=== PATIENT | male | born 1965 | race American Indian/Alaskan Native ===

== ENCOUNTER 2017-04-27 23:03 | Emergency (ER) | payer MEDICAID ==
[2017-04-28] MEDS ORDERED: NORCO 5/325 PO ONE (00:23)
--- NOTE | 2017-04-28 02:14 | XRay Report ---
FINAL REPORT PROCEDURE: XR FOOT 3+V LT TECHNIQUE: LEFT foot radiographs, AP, lateral, and oblique views. CPT 27585 HISTORY: left foot pain, FB sensation COMPARISON: No prior studies are available for comparison. FINDINGS: There are no fractures. There is hallux valgus configuration of the 1st metatarsophalangeal joint. Soft tissues are unremarkable. There are no foreign bodies. IMPRESSION: No foreign body is identified. There is no fracture..
--- NOTE | 2017-04-28 02:50 | Emergency Department Report ---
ED ENT HPI - General Chief complaint: Dental/Oral Stated complaint: METAL IN LT FOOT, MOUTH PAIN Source: patient Mode of arrival: Ambulatory Limitations: No Limitations - History of Present Illness Initial comments: 52 year old male presents to ED with right lower dental pain x2-3 days and also left foot pain x1 month. patient states he stepped on metal 1 month ago and it feels like the piece of metal is still in plantar surface of left foot. patient is stable, neurologically intact and in no acute distress. patient insists that he has left foot xray for foreign body. MD complaint: tooth pain -: Sudden Location: tooth # 1 - dental pain Severity: mild Quality: aching Consistency: constant Improves with: none Worsens with: eating Context- Dental: history of dental caries Associated Symptoms: gum swelling, toothache. denies: fever, cough, pain with swallowing, sore throat, discharge from ear, rhinorrhea - Related Data Previous Rx's Medication Instructions Recorded Last Taken Type Amoxicillin 500 mg PO BID #14 capsule 04/28/17 Unknown Rx Naproxen [Naprosyn] 500 mg PO BID #10 tablet 04/28/17 Unknown Rx Allergies Allergy/AdvReac Type Severity Reaction Status Date / Time No Known Allergies Allergy Unverified 04/27/17 23:55 ED Dental HPI - General Chief complaint: Dental/Oral Stated complaint: METAL IN LT FOOT, MOUTH PAIN Source: patient Mode of arrival: Ambulatory Limitations: No Limitations - Related Data Previous Rx's Medication Instructions Recorded Last Taken Type Amoxicillin 500 mg PO BID #14 capsule 04/28/17 Unknown Rx Naproxen [Naprosyn] 500 mg PO BID #10 tablet 04/28/17 Unknown Rx Allergies Allergy/AdvReac Type Severity Reaction Status Date / Time No Known Allergies Allergy Unverified 04/27/17 23:55 ED Review of Systems ROS: Stated complaint: METAL IN LT FOOT, MOUTH PAIN Other details as noted in HPI Constitutional: denies: chills, fever Eyes: denies: eye pain, eye discharge, vision change ENT: dental pain. denies: ear pain, throat pain Respiratory: denies: cough, shortness of breath, wheezing Cardiovascular: denies: chest pain, palpitations Endocrine: no symptoms reported Gastrointestinal: denies: abdominal pain, nausea, vomiting, diarrhea Genitourinary: denies: urgency, dysuria Musculoskeletal: arthralgia. denies: back pain, joint swelling Skin: denies: rash, lesions Neurological: denies: headache, weakness, paresthesias Psychiatric: denies: anxiety, depression Hematological/Lymphatic: denies: easy bleeding, easy bruising ED Past Medical Hx - Past Medical History Additional medical history: CEREBRAL PALSY - Surgical History Past Surgical History?: No - Social History Smoking Status: Current Every Day Smoker Substance Use Type: Alcohol - Medications Home Medications: Home Medications Medication Instructions Recorded Confirmed Last Taken Type Amoxicillin 500 mg PO BID #14 capsule 04/28/17 Unknown Rx Naproxen [Naprosyn] 500 mg PO BID #10 tablet 04/28/17 Unknown Rx ED Physical Exam - General Limitations: No Limitations General appearance: alert, in no apparent distress - Head Head exam: Present: atraumatic, normocephalic - Eye Eye exam: Present: normal appearance - ENT ENT exam: Present: normal exam, mucous membranes moist, TM's normal bilaterally , other (right lower gum swelling and dental caries present) - Neck Neck exam: Present: normal inspection, full ROM. Absent: tenderness, lymphadenopathy - Respiratory Respiratory exam: Present: normal lung sounds bilaterally. Absent: respiratory distress, wheezes, rales, rhonchi - Cardiovascular Cardiovascular Exam: Present: regular rate, normal rhythm. Absent: systolic murmur, diastolic murmur, rubs, gallop - GI/Abdominal GI/Abdominal exam: Present: soft, normal bowel sounds. Absent: distended, tenderness, guarding - Rectal Rectal exam: Present: deferred - Extremities Exam Extremities exam: Present: normal inspection, full ROM. Absent: tenderness - Back Exam Back exam: Present: normal inspection, full ROM. Absent: tenderness - Neurological Exam Neurological exam: Present: alert, oriented X3 - Psychiatric Psychiatric exam: Present: normal affect, normal mood - Skin Skin exam: Present: warm, dry, intact, normal color, other (no redness or swelling to left foot). Absent: rash ED Course Vital Signs 04/27/17 04/28/17 04/28/17 23:49 00:58 03:05 Temperature 98.8 F 98 F Pulse Rate 86 75 Respiratory 18 18 18 Rate Blood Pressure 156/68 Blood Pressure 132/79 [Left] O2 Sat by Pulse 98 Oximetry 04/28/17 04/28/17 03:06 03:19 Temperature 98 F Pulse Rate 74 Respiratory 18 18 Rate Blood Pressure Blood Pressure 137/69 [Left] O2 Sat by Pulse 100 Oximetry ED Medical Decision Making - Radiology Data Radiology results: report reviewed XR left foot No foreign body is identified. There is no fracture per radiologist. - Medical Decision Making 52 year old male presents to ED with dental pain and left foot pain. patient has negative imaging study for foreign body in left foot and continues to insist there is something inside of his foot. patient will be given referral to retail aide for further evaluation. patient has normal sensation in left foot and dorsalis pedis pulse in left foot. patient is stable, neurologically intact and in no acute distress. patient will be placed on PO abx for gum swelling and dental caries and referred to dental clinic for further evaluation. Critical care attestation.: If time is entered above; I have spent that time in minutes in the direct care of this critically ill patient, excluding procedure time. ED Disposition Clinical Impression: Toothache, Gingivitis Disposition: DC- TO HOME OR SELFCARE Is pt being admited?: No Does the pt Need Aspirin: No Condition: Stable Instructions: Dental Caries (ED), Toothache (ED) Additional Instructions: [facility] [place], [place] Address: [address] [place] [address] Polina Valdez DPM [facility] the [place], [place] Address: [address] [place] [address] [facility]: Joann Momin DPM [facility]visor [facility] in the [place], [place] Address: [address] [place] [address] [facility]: Hernan Alvarado DPM Supervisor [facility] in the [place], [place] Address: [address], [place] [address] Hours: Open today [id number], 13:30PM Products and Services: [employer] Jerry Lyle DPM Supervisor [facility] in [place], [place] Address: [address] [place] [address], [place] [address] Prescriptions: Amoxicillin 500 mg PO BID #14 capsule Naproxen [Naprosyn] 500 mg PO BID #10 tablet Referrals: PRIMARY CARE,MD [Primary Care Provider] - 3-5 Days [facility] [Outside] - 3-5 Days
[2017-04-28 03:21] VITALS: BP 137/69
== END 2017-04-28 03:22 | disposition home or self-care (01) ==
LOC: ED 23:03
DX: K05.10 Chronic gingivitis, plaque induced (principal); M79.672 Pain in left foot; F17.210 Nicotine dependence, cigarettes, uncomplicated
CPT/HCPCS: 99283

== ENCOUNTER 2019-05-21 00:03 | Emergency (ER) | payer OTHER, MEDICAID ==
[2019-05-21 00:50] VITALS: BP 154/88
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
== END 2019-05-21 03:11 | disposition home or self-care (01) ==
LOC: ED 00:03
DX: S39.012A Strain of muscle, fascia and tendon of lower back, initial encounter (principal); S16.1XXA Strain of muscle, fascia and tendon at neck level, initial encounter; V89.2XXA Person injured in unspecified motor-vehicle accident, traffic, initial encounter; Y93.89 Activity, other specified; Y92.410 Unspecified street and highway as the place of occurrence of the external cause; Y99.8 Other external cause status
CPT/HCPCS: 99282

== ENCOUNTER 2021-08-26 16:04 | Emergency (ER) | payer MEDICAID ==
[2021-08-26 16:38] VITALS: BP 141/84
[2021-08-26] MEDS ORDERED: CYCLOBENZAPRINE 10 MG TAB PO ONE (21:40)
--- NOTE | 2021-08-26 21:40 | Emergency Department Report ---
HPI - General Chief Complaint: Headache Time Seen by Provider: 08/26/21 21:25 - HPI HPI: 56-year-old -[place] male presents to the emergency department with a complaint of intermittent headaches that have been going on for the past week. They are mostly right-sided to the right parietal and right frontal head/scalp, behind the right eye and he also feels it in the right ear. Patient says that he has been having "issues with my sinuses" as he says that he has been having congestion. The patient also complains seeing black spots intermittently. It last occurred this morning but has since resolved. He denies any numbness, paresthesias, slurred speech, focal or lateralizing weakness, facial droop, chest pain, fever. He has a past medical history of cerebral palsy.. He is a tobacco smoker but denies any illicit drug use. He follows with Dr. Jim at [facility]. No recent travel or sick contacts at home. ED Past Medical Hx - Past Medical History Additional medical history: CEREBRAL PALSY - Surgical History Additional Surgical History: bilateral heels - Social History Smoking Status: Current Some Day Smoker Substance Use Type: Alcohol - Medications Home Medications: Home Medications Medication Instructions Recorded Confirmed Last Taken Type Amoxicillin 500 mg PO BID #14 capsule 04/28/17 Unknown Rx Naproxen [Naprosyn] 500 mg PO BID #10 tablet 04/28/17 Unknown Rx Ibuprofen [Motrin 800 MG tab] 800 mg PO Q8HR PRN #21 tablet 05/21/19 Unknown Rx tiZANidine [Zanaflex 4mg TAB] 4 mg PO TID #21 tablet 05/21/19 Unknown Rx Cyclobenzaprine [Flexeril] 10 mg PO TID PRN #12 08/26/21 Unknown Rx Fluticasone [Flonase] 1 spray NS QDAY #1 bottle 08/26/21 Unknown Rx Loratadine [Claritin] 10 mg PO QDAY #10 08/26/21 Unknown Rx ED Review of Systems ROS: Stated complaint: HEADACHE/SEEING SPOTS Other details as noted in HPI Comment: All other systems reviewed and negative Constitutional: denies: chills, fever Eyes: other (Intermittent black spots in visual field). denies: eye pain ENT: congestion. denies: throat pain, dental pain Respiratory: denies: cough, shortness of breath Cardiovascular: denies: chest pain, palpitations Gastrointestinal: denies: abdominal pain, vomiting Genitourinary: denies: dysuria, discharge Musculoskeletal: denies: back pain, arthralgia Skin: denies: rash, lesions Neurological: headache. denies: weakness, numbness, paresthesias, confusion, vertigo Physical Exam - Physical Exam Vital Signs: Vital Signs 08/26/21 16:35 Temperature 98.1 F Pulse Rate 70 Respiratory 18 Rate Blood Pressure 141/84 O2 Sat by Pulse 98 Oximetry Physical Exam: GENERAL: The patient is well-developed well-nourished. HENT: Normocephalic. Atraumatic. Patient has moist mucous membranes. EYES: Extraocular motions are intact. Pupils equal reactive to light bilaterally. No nystagmus. NECK: Supple. Trachea is midline. CHEST/LUNGS: Clear to auscultation. There is no respiratory distress noted. HEART/CARDIOVASCULAR: Regular. There is no tachycardia. There is no murmur. ABDOMEN: Abdomen is soft, nontender. Patient has normal bowel sounds. There is no abdominal distention. SKIN: Skin is warm and dry. NEURO: The patient is awake, alert, and oriented. The patient is cooperative. The patient has no focal neurologic deficits. Normal speech. Cranial nerves II through XII grossly intact. No facial asymmetry. No pronator drift or dysmetria. MUSCULOSKELETAL: There is no tenderness or deformity. There is no limitation ra nge of motion. ED Course Vital Signs 08/26/21 16:35 Temperature 98.1 F Pulse Rate 70 Respiratory 18 Rate Blood Pressure 141/84 O2 Sat by Pulse 98 Oximetry ED Medical Decision Making - Lab Data Result diagrams: 08/26/21 21:29 08/26/21 21:29 Lab Results 08/26/21 08/26/21 08/26/21 Range/Units 21:29 21:29 21:29 WBC 10.1 (4.5-11.0) K/mm3 RBC 4.83 (3.65-5.03) M/mm3 Hgb 14.9 (11.8-15.2) gm/dl Hct 46.3 H (35.5-45.6) % MCV 96 H (84-94) fl MCH 31 (28-32) pg MCHC 32 (32-34) % RDW 14.4 (13.2-15.2) % Plt Count 271 (140-440) K/mm3 Lymph % (Auto) 22.2 (13.4-35.0) % Oliver % (Auto) 6.8 (0.0-7.3) % Eos % (Auto) 1.5 (0.0-4.3) % Baso % (Auto) 0.8 (0.0-1.8) % Lymph # (Auto) 2.2 (1.2-5.4) K/mm3 Oliver # (Auto) 0.7 (0.0-0.8) K/mm3 Eos # (Auto) 0.2 (0.0-0.4) K/mm3 Baso # (Auto) 0.1 (0.0-0.1) K/mm3 Seg Neutrophils % 68.7 (40.0-70.0) % Seg Neutrophils # 7.0 (1.8-7.7) K/mm3 Sodium 147 H (137-145) mmol/L Potassium 4.2 (3.6-5.0) mmol/L Chloride 107.0 (98-107) mmol/L Carbon Dioxide 28 (22-30) mmol/L Anion Gap 16 mmol/L BUN 10 (9-20) mg/dL Creatinine 0.8 (0.8-1.3) mg/dL Estimated GFR > 60 ml/min BUN/Creatinine Ratio 13 % Glucose 78 (75-100) mg/dL Calcium 9.6 (8.4-10.2) mg/dL TSH 0.451 (0.270-4.200) mlU/mL - Radiology Data Radiology results: report reviewed CT HEAD WITHOUT CONTRAST INDICATION / CLINICAL INFORMATION: Headache. TECHNIQUE: All CT scans at this location are performed using CT dose reduction for ALARA by means of automated exposure control. COMPARISON: None available. FINDINGS: BRAIN PARENCHYMA: No acute intracranial hemorrhage. No evidence of recent infarct. No mass effect or midline shift. VENTRICULAR SYSTEM/EXTRA-AXIAL SPACES: Ventricles are normal for age. No extra-axial fluid collection. ORBITS: Normal as visualized. SKELETAL SYSTEM/SOFT TISSUES: Normal bones and soft tissues. PARANASAL SINUSES/MASTOID AIR CELLS: No significant abnormality. ADDITIONAL FINDINGS: None. IMPRESSION: 1. No acute intracranial abnormality. - Medical Decision Making This patient presents to the emergency department with intermittent right-sided headaches, and some intermittent visual spots. At the time of my examination his headache is mild, 3 out of 10 in intensity and he denies any change in his vision or visual acuity. On examination he does not have any focal, motor or sensory deficits and his cranial nerves are intact. He has an NIH stroke scale of zero. CT of the head without contrast does not show any hemorrhage, large vessel occlusion, or any other acute process. Labs have been unremarkable including CBC, metabolic panel and normal thyroid function. The patient complains of some sinus pressure, so this could be a sinus headache. He also complains of some muscle tension in the neck, so the differential also includes a tension headache. He does not appear to have any meningismus signs. Vital signs reassuring including being afebrile. The patient was seen ambulatory and is at his baseline ability and says that he feels stable. For all these reasons the patient appears safe for discharge home at this time. He has been given a prescription for a muscle relaxer, Flonase and Claritin. He has been given an outpatient referral for an big data developer and neurologist. He will return to the emergency department with any worsening of his symptoms or with any acute distress. Critical Care Time: No Critical care attestation.: If time is entered above; I have spent that time in minutes in the direct care of this critically ill patient, excluding procedure time. ED Disposition Clinical Impression: Sinus congestion Headache Qualifiers: Headache type: unspecified Headache chronicity pattern: unspecified pattern Intractability: not intractable Qualified Code(s): R51.9 - Headache, unspecified Disposition: 01 HOME / SELF CARE / HOMELESS Is pt being admited?: No Condition: Stable Instructions: General Headache Without Cause Additional Instructions: Please follow-up with your primary care physician in the next few days. I am giving you a referral for the [facility] to follow-up regarding the intermittent visual spots you have been seeing. I am giving you a referral for a local neurologist, Dr. Harley, to follow-up regarding your headaches. You have been prescribed a medication that is sedating and therefore should not be taken prior to driving, working, and responsible for children and in no way should be mixed with alcohol of any quantity. Return to the emergency department with any worsening of your symptoms, new or concerning symptoms not addressed during this current emergency department visit, or with any acute distress. Prescriptions: Loratadine [Claritin] 10 mg PO QDAY #10 Cyclobenzaprine [Flexeril] 10 mg PO TID PRN #12 PRN Reason: Muscle Spasm Fluticasone [Flonase] 1 spray NS QDAY #1 bottle Referrals: RAGHAVENDRA HATFIELD MD [Primary Care Provider] - 3-5 Days EYAD JIM MD [Referring] - 3-5 Days RACHANA HARLEY MD [Referring] - 3-5 Days [facility] [Provider Group] - 3-5 Days Time of Disposition: 23:23 - Assessment Assessment Interval: Baseline - Level of Consciousness 1a. Level of Consciousness: alert/keenly responsive - LOC Questions 1b. LOC Questions: answers both correctly - LOC Command 1c. LOC Commands: performs tasks correctly - Best Gaze 2. Best Gaze: normal - Visual 3. Visual: no visual loss - Facial Palsy 4. Facial Palsy: normal symmetrical movement - Motor Arm 5a. Motor Arm Left: no drift 5b. Motor Arm Right: no drift - Motor Leg 6a. Motor Leg Left: no drift 6b. Motor Leg Right: no drift - Limb Ataxia 7. Limb Ataxia: absent - Sensory 8. Sensory: normal - Best Language 9. Best Language: no aphasia - Dysarthria 10. Dysarthria: normal - Extinction and Inattention 11. Extinction/Inattention: no abnormality - Scoring Total Score: 0 Stroke Severity: No Stroke Symptoms
[2021-08-26 21:54] LABS: Basophils # (Auto) 0.1 K/mm3 (0.0-0.1); Basophils % (Auto) 0.8 % (0.0-1.8); Eosinophils # (Auto) 0.2 K/mm3 (0.0-0.4); Eosinophils % (Auto) 1.5 % (0.0-4.3); Hematocrit 46.3 % (35.5-45.6); Hemoglobin 14.9 gm/dl (11.8-15.2); Lymphocytes # (Auto) 2.2 K/mm3 (1.2-5.4); Lymphocytes % (Auto) 22.2 % (13.4-35.0); Mean Corpuscular HGB Conc 32 % (32-34); Mean Corpuscular Volume 96 fl (84-94); Monocytes # (Auto) 0.7 K/mm3 (0.0-0.8); Monocytes % (Auto) 6.8 % (0.0-7.3); Platelet Count 271 K/mm3 (140-440); Red Blood Count 4.83 M/mm3 (3.65-5.03); Red Cell Distribution Width 14.4 % (13.2-15.2)
[2021-08-26 22:03] LABS: BUN/Creatinine Ratio 13; Blood Urea Nitrogen 10 mg/dL (9-20); Calcium 9.6 mg/dL (8.4-10.2); Hemolysis Index 9
--- NOTE | 2021-08-26 22:21 | Cat Scan Report ---
CT HEAD WITHOUT CONTRAST INDICATION / CLINICAL INFORMATION: Headache. TECHNIQUE: All CT scans at this location are performed using CT dose reduction for ALARA by means of automated exposure control. COMPARISON: None available. FINDINGS: BRAIN PARENCHYMA: No acute intracranial hemorrhage. No evidence of recent infarct. No mass effect or midline shift. VENTRICULAR SYSTEM/EXTRA-AXIAL SPACES: Ventricles are normal for age. No extra-axial fluid collection . ORBITS: Normal as visualized. SKELETAL SYSTEM/SOFT TISSUES: Normal bones and soft tissues. PARANASAL SINUSES/MASTOID AIR CELLS: No significant abnormality. ADDITIONAL FINDINGS: None. IMPRESSION: 1. No acute intracranial abnormality. Signer Name: Xiang Puga MD Signed: 08/26/2021 10:17 PM Workstation Name: [id number]
[2021-08-26] MEDS ORDERED: KETOROLAC 30 MG/1 ML INJ IM ONE (22:34)
== END 2021-08-27 00:34 | disposition home or self-care (01) ==
LOC: ED 16:04
DX: R09.81 Nasal congestion (principal); R51.9 Headache, unspecified; F17.200 Nicotine dependence, unspecified, uncomplicated; F10.20 Alcohol dependence, uncomplicated
CPT/HCPCS: 36415; 70450; 80048; 84443; 85025; 96372; 99284; J1885